=== PATIENT | female | born 1980 | race Caucasian/White ===

== ENCOUNTER → 2019-11-03 07:15 | Outpatient (CLI) | payer BC, SELFPAY ==
--- NOTE | ~2019-11-03 | XR_ITS ---
EXAMINATION: XR wrist RT min 3V DATE: 11/03/2019 07:29 INDICATION: Right wrist pain. TECHNIQUE: 4 views of right wrist were obtained. COMPARISON: Right hand radiographs 01/10/2017 FINDINGS: Bone alignment is normal. No fracture. Joint spaces are well maintained. IMPRESSION: 1. Normal right wrist. Reviewed, dictated and finalized at location A. YTICAL ENGINEER IMPRESSION: 1. Normal right wrist.
== END ==
PROVIDERS: PCP Physician Assistant Medical; Visit Provider Physician Assistant Medical
DX: M25.539 Pain in unspecified wrist (principal)
CPT/HCPCS: 73110

== ENCOUNTER 2021-09-06 07:41 | Outpatient (CLI) | payer BC, SELFPAY ==
--- NOTE | ~2021-09-06 | MM_ITS ---
EXAMINATION: MM screening mami BI w lili HISTORY: Screening TECHNIQUE: Craniocaudal and mediolateral oblique 3-D tomosynthesis images were obtained and synthetic 2-D images were generated. CAD analysis was submitted and interpreted. COMPARISON: Comparison to multiple prior studies sequentially, with oldest reviewed study dated 06/04. BREAST PARENCHYMAL COMPOSITION: There are scattered areas of fibroglandular density. FINDINGS: There is no evidence of suspicious mass, calcification, or architectural distortion to sugg est malignancy in either breast. There has been no suspicious interval change. IMPRESSION: 1. No mammographic evidence of malignancy. 2. Recommend routine screening mammography in one year. BI-RADS Category 1: Negative Reviewed, dictated and finalized at location A. IONARY STEAM ENGINEER
== END 2021-09-06 07:42 | disposition home or self-care (01) ==
LOC: ANHIMG 07:43
PROVIDERS: PCP Family Medicine; Visit Provider Obstetrics & Gynecology
DX: Z12.31 Encounter for screening mammogram for malignant neoplasm of breast (principal)
CPT/HCPCS: 77063; 77067

== ENCOUNTER 2022-10-17 07:34 | Outpatient (CLI) | payer BC, SELFPAY ==
--- NOTE | ~2022-10-17 | MM_ITS ---
EXAMINATION: MM screening mami BI w lili HISTORY: Screening TECHNIQUE: Craniocaudal and mediolateral oblique 3-D tomosynthesis images were obtained and synthetic 2-D images were generated. CAD analysis was submitted and interpreted. COMPARISON: Comparison to multiple prior studies sequentially, with oldest reviewed study dated 06/04. BREAST PARENCHYMAL COMPOSITION: There are scattered areas of fibroglandular density. FINDINGS: There is no evidence of suspicious mass, calcification, or architectural distortion to sugg est malignancy in either breast. There has been no suspicious interval change. IMPRESSION: 1. No mammographic evidence of malignancy. 2. Recommend routine screening mammography in one year. BI-RADS Category 1: Negative Reviewed, dictated and finalized at location A. GE REGISTERED NURSE
== END 2022-10-17 07:35 | disposition home or self-care (01) ==
LOC: ANHIMG 07:36
PROVIDERS: PCP Family Medicine; Visit Provider Obstetrics & Gynecology
DX: Z12.31 Encounter for screening mammogram for malignant neoplasm of breast (principal)
CPT/HCPCS: 77063; 77067

== ENCOUNTER 2022-11-20 15:08 | Outpatient (CLI) | payer BC, SELFPAY ==
--- NOTE | ~2022-11-20 | US_ITS ---
EXAMINATION: US soft tissue head and neck DATE: 11/20/2022 16:14 INDICATION: Neck mass. TECHNIQUE: Multiple grayscale and Doppler ultrasound images of the neck were obtained. COMPARISON: None FINDINGS: In the right posterior neck, there is a 6 mm hypoechoic subcutaneous mass, likely a normal lymph node. IMPRESSION: 1. Normal subcutaneous lymph node in the patient's area of concern in the right posterior neck. Reviewed, dictated and finalized at location A. DEVELOPER
== END 2022-11-20 15:09 | disposition home or self-care (01) ==
PROVIDERS: PCP Family Medicine; Visit Provider Family Medicine
DX: R22.1 Localized swelling, mass and lump, neck (principal)
CPT/HCPCS: 76536

== ENCOUNTER 2022-12-15 00:01 | Day surgery (SDC) | payer BC, SELFPAY ==
[2022-12-01 14:46] VITALS: BMI 28.3
[2022-12-15 09:11] VITALS: BP 114/75; PULSE 81; RESP 18; TEMP 36.2; O2SAT 99
--- NOTE | 2022-12-15 09:21 | WPDANESEPPF ---
Anes - Initial Pre Proc Eval Procedure: Operation Date: 12/15/22 10:30 Proposed Procedures p Colonoscopy - Oleksanrd Null MD Date/Time: 12/15/22 09:21 Surgeon: Oleksandr Null MD Pre Op Diagnosis: family hx colon ca Patient Data Age: 42 Gender: F Height: 1.6 m Weight: 73.5 kg Last Vital Signs Temp 36.2 C L 12/15/22 09:11 Pulse 81 12/15/22 09:11 Resp 18 12/15/22 09:11 BP 114/75 12/15/22 09:11 Pulse Ox 99 12/15/22 09:11 O2 Del Method Room Air 12/15/22 09:11 Allergies Allergy/AdvReac Type Severity Reaction Status Date / Time cephalexin Allergy Severe Hives Verified 12/15/22 09:08 Home Medications Medication Instructions Recorded Confirmed Type copper 380 square mm intrauterine 1 device intrauterine ONCE 10/17/19 12/01/22 History device (ParaGard T 380A) fluoxetine 40 mg capsule (Prozac) 40 mg PO DAILY #90 caps 08/11/22 12/01/22 Rx triamcinolone acetonide 0.1 % 1 applic topical BID #80 grams 11/10/22 12/01/22 Rx topical ointment Patient hx anesthesia problems: none Family hx anesthesia problems: none Results Review: All pre-operative results and documents have been reviewed as part of the pre-operative evaluation. [facility] Past Medical History Medical History (Updated 11/13/22 @ 09:11 by Carrol Harkins DO) Anxiety and depression Encounter for IUD insertion 01/09/15 Mirena insertion 03/02/18 Paragard insertion Encounter for IUD removal 06/13/15 Mirena removal--acne Screening mammogram, encounter for Surgical History Surgical History H/O removal of cyst Right axilla History of delivery 06/11/09 primary c/s--macrosomia History of colonoscopy 01/19/14--negative Family History Family History Mother Carcinoma of colon, Onset Age: 51 Grandparent Family history of malignant neoplasm of breast, Onset Age: 50 maternal grandmother Neoplasm of lung maternal grandmother Father Malignant neoplasm of prostate Skin cancer Other No family history of hypertension Social History Social History (Updated 11/10/22 @ 09:21 by Shira Jorgensen [facility]) Smoking status: Never smoker Alcohol intake: current Drinks per week: 6 Substance use: never Substance use type: does not use Lack of Transportation: No Lack of Food: Never True Current Housing: I Have Housing Concerned About Future Housing: No Difficulty Paying Gas/Electric Bills: No Difficulty Paying for Meds: No Currently Unemployed: No Education: Bachelor's Degree Difficulty w/ Childcare or Family Care: No Living arrangements: with family Additional living arrangements comments: 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 Gender identity (if verbalized by the patient): Female Sexual Orientation (if Verbalized by the Patient): Straight or Heterosexual Anes - Eval Final PreProcedure Day of Procedure 12/15/22 09:21 Patient weight: overweight Heart: regular rate and rhythm Lungs: clear to auscultation and normal air movement Airway: Mallampati scale class II Neurological: alert and oriented Last oral intake: >/= 8 hours ASA classification: II Emergent: no Anesthetic plan: proceed Anesthesia type and monitoring: general GIVS Results Review: All pre-operative results and documents have been reviewed as part of the pre-operative evaluation. Informed Consent: The patient's anesthetic plan and its attendant risks and benefits were discussed with the patient/family/POA. Questions were solicited and answers provided to the satisfaction of the patient/family/POA.
[2022-12-15] MEDS: LACTATED RINGERS 1,000 ML 150 ML IV CONT (09:24)
--- NOTE | 2022-12-15 09:32 | PM.HPGS ---
History of Present Illness History of Present Illness Consent: Risks, benefits, and alternatives have been discussed and questions answered. Patient agrees to proceed with procedure. Chief complaint: family hx colon ca Narrative: Betty Shah is a 42 year old female Presents for screening colonoscopy. Patient's current weight appetite and bowel movements are normal. Patient denies abdominal pain. She has had no bleeding. Family history is significant that her mother had colon cancer. Patient's previous colonoscopy 2013 was unremarkable. Patient presents today for surveillance screening colonoscopy. Review of Systems Review of Systems: Review of systems is noncontributory. [facility] Past Medical History Medical History (Updated 11/13/22 @ 09:11 by Carrol Harkins DO) Anxiety and depression Encounter for IUD insertion 01/09/15 Mirena insertion 03/02/18 Paragard insertion Encounter for IUD removal 06/13/15 Mirena removal--acne Screening mammogram, encounter for Surgical History Surgical History H/O removal of cyst Right axilla History of delivery 06/11/09 primary c/s--macrosomia History of colonoscopy 01/19/14--negative Family History Family History Mother Carcinoma of colon, Onset Age: 51 Grandparent Family history of malignant neoplasm of breast, Onset Age: 50 maternal grandmother Neoplasm of lung maternal grandmother Father Malignant neoplasm of prostate Skin cancer Other No family history of hypertension Social History Social History (Updated 11/10/22 @ 09:21 by Shira Jorgensen [facility]) Smoking status: Never smoker Alcohol intake: current Drinks per week: 6 Substance use: never Substance use type: does not use Lack of Transportation: No Lack of Food: Never True Current Housing: I Have Housing Concerned About Future Housing: No Difficulty Paying Gas/Electric Bills: No Difficulty Paying for Meds: No Currently Unemployed: No Education: Bachelor's Degree Difficulty w/ Childcare or Family Care: No Living arrangements: with family Additional living arrangements comments: 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 Gender identity (if verbalized by the patient): Female Sexual Orientation (if Verbalized by the Patient): Straight or Heterosexual Meds Home Medications and Allergies Home Medications Medication Instructions Recorded Confirmed Type copper 380 square mm intrauterine 1 device intrauterine ONCE 10/17/19 12/01/22 History device (ParaGard T 380A) fluoxetine 40 mg capsule (Prozac) 40 mg PO DAILY #90 caps 08/11/22 12/01/22 Rx triamcinolone acetonide 0.1 % 1 applic topical BID #80 grams 11/10/22 12/01/22 Rx topical ointment Allergies Allergy/AdvReac Type Severity Reaction Status Date / Time cephalexin Allergy Severe Hives Verified 12/15/22 09:08 Vital Signs Vital Signs - 24 hr 12/15/22 09:11 Temperature 97.1 F L Pulse Rate 81 Respiratory Rate 18 Blood Pressure 114/75 Pulse Oximetry 99 Oxygen Delivery Room Air Exam Narrative: Physical exam reveals patient to be alert. Vital signs stable. HEENT exam is unremarkable. Patient is anicteric. Lungs are clear to auscultation and percussion. Heart is without murmur or extra sounds. Abdomen bowel sounds are present soft nontender with no organomegaly. Digital external rectal exam is normal. Assessment and Plan Assessment and plan (1) Family history of colon cancer: Code(s): Z80.0 - Family history of malignant neoplasm of digestive organs Status: Acute Assessment and Plan: Patient's mother had colon cancer. For this reason screening colonoscopy is advised further recommendations may be given after endoscopy.
[2022-12-15 10:40] VITALS: BP 91/56; PULSE 56; RESP 22; O2SAT 96
[2022-12-15 10:50] VITALS: BP 103/79; PULSE 58; RESP 24; O2SAT 98
[2022-12-15 11:00] VITALS: BP 106/84; PULSE 56; RESP 24; O2SAT 99
== END 2022-12-15 11:10 | disposition home or self-care (01) ==
PROVIDERS: PCP Family Medicine; Visit Provider Internal Medicine Gastroenterology
PROC: 0DJD8ZZ Inspection of Lower Intestinal Tract, Via Natural or Artificial Opening Endoscopic (ICD-10-PCS; CPT 45378; principal; 2022-12-15 10:30)
DX: Z12.11 Encounter for screening for malignant neoplasm of colon (principal); K64.8 Other hemorrhoids; K57.30 Diverticulosis of large intestine without perforation or abscess without bleeding; Z80.0 Family history of malignant neoplasm of digestive organs; F41.8 Other specified anxiety disorders
CPT/HCPCS: 45378; J2704; J7120

== ENCOUNTER 2023-10-29 08:00 | Outpatient (CLI) | payer BC, SELFPAY ==
[2023-10-29 08:42] LABS: Hemoglobin 14.2 g/dL (12.0-15.0); Mean Corpuscular HGB Conc 32.3 g/dl (32-36); Mean Corpuscular Hemoglobin 28.3 pg (26-34); Mean Corpuscular Volume 87.6 fl (80-100); Mean Platelet Volume 8.9 fl (7.4-10.4); Platelet Count Result 382 k/mm3 (150-375); Red Blood Count 5.02 M/mm3 (4.2-5.4); Red Cell Distribution Width 13.7 % (11.5-14.5); White Blood Count 7.3 K/mm3 (4.5-10.0)
== END 2023-10-29 08:01 | disposition home or self-care (01) ==
LOC: ANHSURGERY 08:03
PROVIDERS: PCP Family Medicine; Visit Provider Obstetrics & Gynecology
DX: Z01.818 Encounter for other preprocedural examination (principal); N92.0 Excessive and frequent menstruation with regular cycle
CPT/HCPCS: 36415; 85027

== ENCOUNTER 2023-11-05 00:35 | Day surgery (SDC) | payer BC, SELFPAY ==
[2023-10-27 13:52] VITALS: BMI 28.3
--- NOTE | 2023-10-27 13:53 | PC.NURSE ---
Addendum entered by Jeanne Martin RN 10/28/23 07:44: PLEASE HOLD SEMAGLUTIDE (WEIGHT LOSS INJECTION MED) UNTIL AFTER SURGERY. Original Note: Report to the Outpatient Waiting Room, entrance under the green pavilion located off [facility], at time _0630_ on date _[id number]_. Planned Procedure Time: _0830_. Time changes happen often and if your time is changed the preop area will call you the afternoon before. - You and your visitor will be asked to self-screen and do not enter if you have any COVID symptoms. - A mask is optional within the hospital at this time. Patients may have clear liquids (water, carbonated beverages, clear teas, apple juice) until 3 hours prior to surgery with a maximum of 20 ounces. - No food from midnight until time of surgery Take the following medications with a SIP of water the morning of surgery: __None DO NOT STOP ANY OF YOUR OTHER PRESCRIPTION MEDICATIONS PRIOR TO SURGERY ?EXCEPT THE FOLLOWING Medications to discontinue per physician Tumeric Date to take last qmqf___[id number] Please no make-up, nail german, hairspray, perfume, deodorant, or body powder the day of surgery. No jewelry (including any body piercings) or valuables the day of surgery, leave them at home. Please take a shower or bath the night before, or the morning of, surgery with an antibacterial soap. Wear comfortable, loose fitting clothing. - Jewelry must be removed prior to entering the operating room. Rings and piercings that are not removed may be cut off. - The hospital will not accept responsibility for valuables. - Please leave all valuables, including medications, at home the day of surgery. If you are going home after surgery, a licensed shuttle truck driver must drive you home. - NO public transportation without another adult if you receive anesthesia. - We recommend that an adult stay with you for 24 hours following discharge. - We also recommend that you do not drive, make important decision, drink alcoholic beverages, or take any drugs that were not prescribed by your health care provider for at least 24 hours after your discharge time. Follow any additional instructions given to you from your surgeon. If you or anyone in your household have experienced Covid symptoms in the past week, please notify your surgeon or the nurse liaison at the phone number below for possible testing. Telephone instructions given to __Audrey___and asked if any additional questions and then verbalized understanding. Patient advised to call surgeon office or pre surgery nurse liaison [phone] if any additional questions.
--- NOTE | 2023-11-03 17:15 | PM.IMHP ---
H&P: HPI History of Present Illness Date/Time: 11/03/23 17:15 42-year-old 1 para 1001 female presents with complaints of menstrual cycles lasting 5-7 days with heavy bleeding and clots. At times he cycles are heavy enough to bleed through her clothing and does keep her from her usual social activities at times. this has been occurring even though she does have an IUD, which is appropriately placed. Ultrasound has been ordered which did show thickened endometrial cavity but no other abnormalities were noted. Also desires permanent sterilization in the form of bilateral salpingectomy. Chief Complaint: Menorrhagia Review of Systems Review of Systems: All systems reviewed & are unremarkable except as noted in HPI and below PMFSH Past Medical History Medical History Anxiety and depression Encounter for IUD insertion 01/09/15 Mirena insertion 03/02/18 Paragard insertion Encounter for IUD removal 06/13/15 Mirena removal--acne Screening mammogram, encounter for Surgical History Surgical History H/O removal of cyst Right axilla History of delivery 06/11/09 primary c/s--macrosomia History of colonoscopy 01/19/14--negative Family History Family History Mother Carcinoma of colon, Onset Age: 51 Grandparent Family history of malignant neoplasm of breast, Onset Age: 50 maternal grandmother Neoplasm of lung maternal grandmother Father Malignant neoplasm of prostate Skin cancer Other No family history of hypertension Social History Social History Smoking status: Never smoker Second hand tobacco smoke exposure: No Alcohol intake: current Drinks per week: 10 Substance use: never Substance use type: does not use Lack of Transportation: No Lack of Food: Never True Current Housing: I Have Housing Concerned About Future Housing: No Difficulty Paying Gas/Electric Bills: No Difficulty Paying for Meds: No Currently Unemployed: No Education: Bachelor's Degree Difficulty w/ Childcare or Family Care: No Living arrangements: with family Additional living arrangements comments: 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 Gender identity (if verbalized by the patient): Female Sexual Orientation (if Verbalized by the Patient): Straight or Heterosexual Spiritual care concerns: No Meds Home Medications and Allergies Home Medications Medication Instructions Recorded Confirmed Type copper 380 square mm intrauterine 1 device intrauterine ONCE 10/17/19 10/27/23 History device (ParaGard T 380A) fluoxetine 40 mg capsule (Prozac) 40 mg PO DAILY #90 caps 08/11/22 10/27/23 Rx semaglutide 0.25 mg or 0.5 mg (2 0.25 mg subcut WEEKLY 10/05/23 10/27/23 History mg/3 mL) subcutaneous pen injector (Ozempic) Tumeric 500 mg PO DAILY 10/27/23 10/27/23 History Allergies Allergy/AdvReac Type Severity Reaction Status Date / Time cephalexin Allergy Severe Hives Verified 10/27/23 13:46 Exam Const: General: cooperative, healthy appearing and comfortable Resp: Effort & Inspection: normal respiratory effort Auscultation: clear to auscultation bilaterally Cardio: Rate: regular rate Rhythm: regular rhythm GI: Inspection: normal to inspection Auscultation: normal bowel sounds : External Female Exam: normal external appearance Speculum Exam - Vagina: normal appearance of the vagina Speculum Exam - Cervix: normal appearance of the cervix Bimanual exam- vagina & uterus: enlarged ( 8-10 week size) Bimanual Exam- Adnexa, other: normal adnexae Assessment and Plan Assessment and plan (1) Menorrhagia: Code(s): N92.0 - Excessive and frequent menstruation with regular
[2023-11-05] VITALS (8 sets, daily range): BP systolic 104–115; BP diastolic 56–75; PULSE 56–71; RESP 11–18; TEMP 36.5–36.6; O2SAT 97–100; BMI 28.8
[2023-11-05] MEDS: KETOROLAC 15 MG/ML VIAL (*BKC) IV PUSH (07:07)
[2023-11-05] MEDS: ACETAMINOPHEN 500 MG TABLET 1000 MG PO (07:07)
[2023-11-05] MEDS: LACTATED RINGERS 1,000 ML 30 ML IV CONT ×2 (07:11→09:44)
--- NOTE | 2023-11-05 07:18 | WPDHPUPDATE1 ---
History and Physical Update Update Date/Time: 11/05/23 07:18 History and Physical has been reviewed, including an updated exam of the patient. There are NO changes in the patient's condition. Risks, benefits, and alternatives have been discussed and questions answered. Patient agrees to proceed with procedure.
--- NOTE | 2023-11-05 08:07 | WPDANESEPPF ---
Anes - Initial Pre Proc Eval Procedure: Operation Date: 11/05/23 08:30 Proposed Procedures p Hysteroscopy Dilation and Curettage with Venita Endometrial Ablation, Intrauterine Device Removal, - Gerard Najera MD s Bilateral Laparoscopic Salpingectomy - Gerard Najera MD Date/Time: 11/05/23 08:07 Surgeon: Gerard Najera MD Pre Op Diagnosis: menorrhagia , desires sterilization Patient Data Age: 42 Gender: F Height: 1.6 m Weight: 73.95 kg Last Vital Signs Temp 98 F 11/05/23 07:44 Pulse 71 11/05/23 07:44 Resp 16 11/05/23 07:44 BP 113/75 11/05/23 07:44 Pulse Ox 97 11/05/23 07:44 Allergies Allergy/AdvReac Type Severity Reaction Status Date / Time cephalexin Allergy Severe Hives Verified 11/05/23 07:13 Home Medications Medication Instructions Recorded Confirmed Type copper 380 square mm intrauterine 1 device intrauterine ONCE 10/17/19 10/27/23 History device (ParaGard T 380A) fluoxetine 40 mg capsule (Prozac) 40 mg PO DAILY #90 caps 08/11/22 11/05/23 Rx semaglutide 0.25 mg or 0.5 mg (2 0.25 mg subcut WEEKLY 10/05/23 11/05/23 History mg/3 mL) subcutaneous pen injector (Ozempic) Tumeric 500 mg PO DAILY 10/27/23 10/27/23 History Patient hx anesthesia problems: none Family hx anesthesia problems: none Results Review: All pre-operative results and documents have been reviewed as part of the pre-operative evaluation. [facility] Past Medical History Medical History Anxiety and depression Encounter for IUD insertion 01/09/15 Mirena insertion 03/02/18 Paragard insertion Encounter for IUD removal 06/13/15 Mirena removal--acne Screening mammogram, encounter for Surgical History Surgical History H/O removal of cyst Right axilla History of delivery 06/11/09 primary c/s--macrosomia History of colonoscopy 01/19/14--negative Family History Family History Mother Carcinoma of colon, Onset Age: 51 Grandparent Family history of malignant neoplasm of breast, Onset Age: 50 maternal grandmother Neoplasm of lung maternal grandmother Father Malignant neoplasm of prostate Skin cancer Other No family history of hypertension Social History Social History Smoking status: Never smoker Second hand tobacco smoke exposure: No Alcohol intake: current Drinks per week: 10 Substance use: never Substance use type: does not use Lack of Transportation: No Lack of Food: Never True Current Housing: I Have Housing Concerned About Future Housing: No Difficulty Paying Gas/Electric Bills: No Difficulty Paying for Meds: No Currently Unemployed: No Education: Bachelor's Degree Difficulty w/ Childcare or Family Care: No Living arrangements: with family Additional living arrangements comments: 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 Gender identity (if verbalized by the patient): Female Sexual Orientation (if Verbalized by the Patient): Straight or Heterosexual Spiritual care concerns: No Anes - Eval Final PreProcedure Day of Procedure 11/05/23 08:07 Patient weight: normal Heart: regular rate and rhythm Lungs: clear to auscultation Airway: Mallampati scale class II Neurological: alert and oriented Last oral intake: >/= 8 hours ASA classification: II Emergent: no Anesthetic plan: proceed Anesthesia type and monitoring: general ETT and standard monitoring Results Review: All pre-operative results and documents have been reviewed as part of the pre-operative evaluation. Informed Consent: The patient's anesthetic plan and its attendant risks and benefits were discussed with the patient/family/POA. Questions were solicited and answe
[2023-11-05] MEDS: ceFAZolin SODIUM 1 GM VIAL 2 GM IV PUSH (09:33)
--- NOTE | 2023-11-05 09:44 | W.PM.PROC2 ---
Procedure Note - Detailed Date of Procedure 11/05/23 Pre-op Diagnosis menorrhagia , retained IUD, desires sterilization Post-op Diagnosis Same Procedure Performed 1. Hysteroscopic removal of IUD 2. Dilation and curettage 3. Endometrial ablation 4. Laparoscopic bilateral salpingectomy Surgeon Gerard Najera MD Anesthesia General Findings Uterus tube ovary without abnormality. Hysteroscopic exam revealed retained IUD, no other abnormalities. Description of Procedure Patient prepped and draped in usual manner for the procedure. Cervical instruments were placed for uterine mobility throughout the case. Abdominal trocar sites were marked and trocars placed under direct visualization. Mesial salpinx bilaterally cauterized and cut and tubes removed. There was no bleeding. Trocars removed after the gas was allowed to escape incisions approximated using 4-0 Monocryl. Attention was then placed to the vagina and cervix was dilated to allow the hysteroscope be placed and hysteroscopic exam did reveal IUD in place which was removed without difficulty. Curettings were obtained with scant tissue, and endometrial ablation instrument was placed and after cavity assessment was activated. At the end of the cycle hysteroscopic exam revealed good destruction throughout. At this point the procedure was considered terminated the patient was sent to recovery room in stable condition. Estimated Blood Loss 50 Drains No Packing No Pathology Yes Complications No immediate complications Condition Stable Disposition PACU [facility] Billing Surgery - Charge Forward: Surgery Billing
[2023-11-05] MEDS: fentaNYL CITRATE INJ (*CRX) 100 MCG/2 ML VIAL 25 MCG IV PUSH ×4 (10:11→10:32)
[2023-11-05] MEDS: oxyCODONE HCL (*CRX) 5 MG TAB IR PO (11:02)
== END 2023-11-05 12:01 | disposition home or self-care (01) ==
PROVIDERS: PCP Family Medicine; Visit Provider Obstetrics & Gynecology
PROC: 0U5B8ZZ Destruction of Endometrium, Via Natural or Artificial Opening Endoscopic (ICD-10-PCS; CPT 58563; principal; 2023-11-05 08:30)
PROC: (CPT 49320; 2023-11-05 08:30)
DX: Z30.2 Encounter for sterilization (principal); N83.8 Other noninflammatory disorders of ovary, fallopian tube and broad ligament; N70.11 Chronic salpingitis; N92.0 Excessive and frequent menstruation with regular cycle; F41.8 Other specified anxiety disorders; Z79.85 Long-term (current) use of injectable non-insulin antidiabetic drugs; Z80.3 Family history of malignant neoplasm of breast; Z80.1 Family history of malignant neoplasm of trachea, bronchus and lung; Z80.42 Family history of malignant neoplasm of prostate; Z84.0 Family history of diseases of the skin and subcutaneous tissue
CPT/HCPCS: 58563; 58661; 58579; 88302; 88305; A9270; J0690; J1100; J1596; J1885; J2250; J2405; J2710; J3010; J7120

== ENCOUNTER 2024-01-07 07:20 | Outpatient (CLI) | payer BC, SELFPAY ==
--- NOTE | ~2024-01-07 | MM_ITS ---
EXAMINATION: MM screening mami BI w lili HISTORY: Screening TECHNIQUE: Craniocaudal and mediolateral oblique 3-D tomosynthesis images were obtained and synthetic 2-D images were generated. CAD analysis was submitted and interpreted. COMPARISON: Comparison to multiple prior studies sequentially, with oldest reviewed study dated 08/21. BREAST PARENCHYMAL COMPOSITION: Not dense: There are scattered areas of fibroglandular density. FINDINGS: There is no evidence of suspicious mass, calcification, or architectural distortion to sugg est malignancy in either breast. There has been no suspicious interval change. IMPRESSION: 1. No mammographic evidence of malignancy. 2. Recommend routine screening mammography in one year. BI-RADS Category 1: Negative Reviewed, dictated and finalized at location B.
== END 2024-01-07 07:21 | disposition home or self-care (01) ==
LOC: ANHIMG 07:21
PROVIDERS: PCP Family Medicine; Visit Provider Obstetrics & Gynecology
DX: Z12.31 Encounter for screening mammogram for malignant neoplasm of breast (principal)
CPT/HCPCS: 77063; 77067

== ENCOUNTER 2025-03-07 07:25 | Outpatient (CLI) | payer BC, SELFPAY ==
--- NOTE | ~2025-03-07 | MM_ITS ---
EXAMINATION: MM screening mami BI w lili HISTORY: Screening TECHNIQUE: Craniocaudal and mediolateral oblique 3-D tomosynthesis images were obtained and synthetic 2-D images were generated. CAD analysis was submitted and interpreted. COMPARISON: Comparison to multiple prior studies sequentially, with oldest reviewed study dated 06/04. BREAST PARENCHYMAL COMPOSITION: Not dense: There are scattered areas of fibroglandular density. FINDINGS: There is no evidence of suspicious mass, calcification, or architectural distortion to sugg est malignancy in either breast. There has been no suspicious interval change. IMPRESSION: 1. No mammographic evidence of malignancy. 2. Recommend routine screening mammography in one year. BI-RADS Category 1: Negative Reviewed, dictated and finalized at location A.
== END 2025-03-07 07:26 | disposition home or self-care (01) ==
PROVIDERS: PCP Family Medicine; Visit Provider Obstetrics & Gynecology
DX: Z12.31 Encounter for screening mammogram for malignant neoplasm of breast (principal)
CPT/HCPCS: 77063; 77067